=== PATIENT | female | born 1975 | race Caucasian/White ===

== ENCOUNTER 2019-02-13 06:33 | Emergency (ER) | payer BC ==
[2019-02-13 07:40] VITALS: TEMP 98.1; BMI 26.6
--- NOTE | 2019-02-13 08:00 | PDOC ---
*Physical Exam - Vital Signs Last Vital Signs Temp Pulse Resp BP Pulse Ox 98.1 F 61 16 179/93 H 100 02/13/19 07:35 02/13/19 07:35 02/13/19 07:35 02/13/19 07:35 02/13/19 07:35 - Physical Exam Comments: 02/13/19 08:00 The patient was examined by [CHAPITO Thompson] under my direct supervision. I personally evaluated the patient. I concur with the above findings and the plan of care. *DC/Admit/Observation/Transfer - Referrals Referrals: Zainab Shea MD [Primary Care Provider] - - Patient Instructions - Post Discharge Activity
[2019-02-13] MEDS ORDERED: ASPIRIN 81 MG CHEWABLE TABLETS PO ONE (08:01)
--- NOTE | 2019-02-13 08:06 | PDOC ---
History of Present Illness - General Chief Complaint: Chest Pain Stated Complaint: CHEST DISCCOMFORT Time Seen by Provider: 02/13/19 07:52 History Source: Patient Exam Limitations: Clinical Condition - History of Present Illness Initial Comments: 02/13/19 08:02 Patient with no significant past medical history present with complaint of three -day history of intermittent chest tightness which lasts for a few minutes and resolves. Patient reported feeling chest tightness and hour ago which has resolved. Denies nausea, vomiting, shortness of breath, tingling sensation or numbness sensation. Denies dizziness or palpitations. Denies any family history of heart attacks. Timing/Duration: other (3 days) Past History - Past Medical History Allergies/Adverse Reactions: Allergies Allergy/AdvReac Type Severity Reaction Status Date / Time No Known Allergies Allergy Verified 02/13/19 07:35 Home Medications: Ambulatory Orders Loratadine [Claritin] 10 mg PO DAILY 02/13/19 Asthma: No Cancer: No Cardiac Disorders: No COPD: No Diabetes: No HTN: No Seizures: No Thyroid Disease: No Other medical history: SEASONAL ALLERGIES - Immunization History Immunization Up to Date: Yes - Suicide/Smoking/Psychosocial Hx Smoking History: Never smoked Have you smoked in the past 12 months: No Hx Alcohol Use: No Drug/Substance Use Hx: No Hx Substance Use Treatment: No Review of Systems - Review of Systems Able to Perform ROS?: Yes Is the patient limited Greek proficient: No Constitutional: No: Night Sweats, Weakness HEENTM: No: Symptoms Reported, See HPI, Eye Pain, Blurred Vision, Tearing, Recent change in vision, Double Vision, Cataracts, Ear Pain, Ocular Prothesis, Ear Discharge, Nose Pain, Nose Congestion, Tinnitus, Nose Bleeding, Hearing Loss , Throat Pain, Throat Swelling, Mouth Pain, Dental Problems, Difficulty Swallowing, Mouth Swelling, Other Respiratory: No: Symptoms reported, See HPI, Cough, Orthopnea, Shortness of Breath, SOB with Exertion, SOB at Rest, Stridor, Wheezing, Productive cough, Hemoptysis, Other Cardiac (ROS): Yes: Symptoms Reported, See HPI, Chest Pain, Chest Tightness. No : Edema, Irregular Heart Rate, Lightheadedness, Palpitations, Syncope, Other ABD/GI: No: Nausea, Vomiting Neurological: No: Numbness, Paresthesia, Tingling, Dizziness All Other Systems: Reviewed and Negative *Physical Exam - Vital Signs Last Vital Signs Temp Pulse Resp BP Pulse Ox 98.1 F 61 16 179/93 H 100 02/13/19 07:35 02/13/19 07:35 02/13/19 07:35 02/13/19 07:35 02/13/19 07:35 - Physical Exam Comments: 02/13/19 08:05 GENERAL: Well developed, well nourished. Awake and alert. No acute distress. HEENT: Normocephalic, atraumatic. PERRLA, EOMI. No conjunctival pallor. Sclera are non-icteric. Moist mucous membranes. Oropharynx is clear. NECK: Supple. Full ROM. CARDIOVASCULAR: Regular rate and rhythm. No murmurs, rubs, or gallops. Distal pulses are 2+ and symmetric. PULMONARY: No evidence of respiratory distress. Lungs clear to auscultation bilaterally. No wheezing, rales or rhonchi. ABDOMINAL: Soft. Non-tender. Non-distended. No rebound or guarding. No organomegaly. Normoactive bowel sounds. MUSCULOSKELETAL Normal range of motion at all joints. SKIN: Warm and dry. Normal capillary refill. No rashes. No cyanosis. NEUROLOGICAL: Alert, awake, appropriate. Gait is normal without ataxia. PSYCHIATRIC: Cooperative. Good eye contact. Appropriate mood General Appearance: Yes: Nourished, Appropriately Dressed. No: Apparent Distress ED Treatment Course - LABORATORY CBC & Chemistry Diagram: 02/13/19 08:10 02/13/19 08:10 Medical Decision Making - Medical Decision Making 02/13/19 08:03 Patient with no significant past medical history present with complaint of three -day history of intermittent chest tightness which lasts for a few minutes and resolves. Patient reported feeling chest tightness and hour ago which has resolved. Denies nausea, vomiting, shortness of breath, tingling sensation or numbness sensation. Denies dizziness or palpitations. Denies any family history of heart attacks. Clinical exam unremarkable except elevated BPs with normal cardio exam and lungs clear to auscultation bilateral. Patient in no acute distress. EKG shows sinus bradycardia. Symptoms likely bronchospasm versus cardiogenic pain. CBC, CMP and cardiac profile labs ordered. Urine test ordered. Checks x-ray ordered to rule out acute chest pathology. Aspirin 162 mg by mouth given. Reassess after lab and imaging results. nitropast ordered due to elevated BPs 02/13/19 09:33 CBC, CMP cardiac profile neg. CXR unremarkable. Patient asymptomatic . Rpt trop 3 hrs from first labs. 02/13/19 11:51 RPT trop negative. Patient still asymptomatic. Patient stable for discharge *DC/Admit/Observation/Transfer Diagnosis at time of Disposition: Chest pain in adult - Discharge Dispostion Disposition: HOME Condition at time of disposition: Improved Decision to Admit order: No - Referrals Referrals: Zainab Shea MD [Primary Care Provider] - - Patient Instructions Printed Discharge Instructions: DI for Atypical Chest Pain Additional Instructions: Your labs and chest x-rays was negative as well as EKG. Take tylenol as needed for pain. Come back to ED if chest pain comes back - Post Discharge Activity Forms/Work/School Notes: Back to Work
[2019-02-13] MEDS ORDERED: ASPIRIN 81 MG CHEWABLE TABLETS ONE (08:09)
[2019-02-13] MEDS ORDERED: NITROGLYCERIN 2% OINTMENT - 1GM PACKET TD ONE ×2 (08:26→08:39)
[2019-02-13 08:28] LABS: BASO % 0.6 % (0-2.0); EOS % 9.8 % (0-4.5); HEMATOCRIT 42.6 % (32.4-45.2); HEMOGLOBIN 14.3 GM/dL (10.7-15.3); LYMPH % 27.3 % (8-40); MCH 31.7 pg (25.7-33.7); MCHC 33.6 g/dl (32.0-36.0); MEAN CELL VOLUME 94.2 fl (80-96); MEAN PLT VOLUME 7.8 fl (7.5-11.1); MONO % 6.4 % (3.8-10.2); NEUT % 55.9 % (42.8-82.8); PLATELET COUNT 330 K/MM3 (134-434); RBC 4.52 M/mm3 (3.60-5.2); RDW 13.6 % (11.6-15.6); WHITE BLOOD COUNT 9.9 K/mm3 (4.0-10.0)
[2019-02-13 09:02] LABS: ALBUMIN 3.7 g/dl (3.4-5.0); ALK PHOS 99 U/L (45-117); ANION GAP 6 MMOL/L (8-16); BILIRUBIN,TOTAL 0.4 mg/dL (0.2-1); BLOOD UREA NITROGEN 7 mg/dL (7-18); CALCIUM 8.6 mg/dL (8.5-10.1); CHLORIDE 107 mmol/L (98-107); CO2 27 mmol/L (21-32); CREATININE 0.6 mg/dL (0.55-1.3); GLUCOSE,RANDOM 87 mg/dL (74-106); POTASSIUM 3.7 mmol/L (3.5-5.1); SGOT/AST 15 U/L (15-37); SGPT/ALT 25 U/L (13-61); SODIUM 141 mmol/L (136-145); TOT PROT 7.4 g/dl (6.4-8.2)
[2019-02-13 10:51] VITALS: BP 153/84; PULSE 57
[2019-02-13] MEDS ORDERED: ACETAMINOPHEN 325 MG TABLET (FP) PO ONE (11:57)
[2019-02-13] MEDS ORDERED: ACETAMINOPHEN 325 MG TABLET (FP) ONE (11:59)
--- NOTE | 2019-02-14 13:09 | EKG ---
Test Reason : Blood Pressure : / mmHG Vent. Rate : 057 BPM Atrial Rate : 057 BPM P-R Int : 166 ms QRS Dur : 076 ms QT Int : 430 ms P-R-T Axes : 062 015 037 degrees QTc Int : 418 ms SINUS BRADYCARDIA WITH SINUS ARRHYTHMIA OTHERWISE NORMAL ECG NO PREVIOUS ECGS AVAILABLE Confirmed by ANA TANNER MD ([id number]) on 02/14/2019 1:09:33 PM Referred By: Confirmed By:ANA TANNER MD
== END 2019-02-13 12:11 | disposition home or self-care (01) ==
LOC: JER 06:33
DX: R07.89 Other chest pain (principal); J30.2 Other seasonal allergic rhinitis
CPT/HCPCS: 36415; 71046-TC-FY; 80053; 82550; 84484; 84703; 85025; 93005; 93010; 99282-25

== ENCOUNTER 2020-04-12 04:02 | Emergency (ER) | payer BC ==
[2020-04-12 04:14] VITALS: BP 152/86; PULSE 81; TEMP 98.3; BMI 25.7
--- NOTE | 2020-04-12 04:41 | PDOC ---
History of Present Illness - General Chief Complaint: Chest Pain Stated Complaint: CHEST PRESSURE/R HAND PAIN/SORE THROAT Time Seen by Provider: 04/12/20 04:14 History Source: Patient Exam Limitations: No Limitations - History of Present Illness Initial Comments: 04/12/20 04:35 HPI: 45yo F pmh HTN presenting with chest pressure since 3AM (<1hour). No pain, just whoel chest pressure described as consistent with her anxiety / prior episodes of hypertension. Mildly hypertensive now. Patient reports being anxious that she may have COVID-19 due to 1 day of sore throat when swallowing. Also endorses right hand numbness starting at the mid forearm radiating to the ring and small fingers. Denies edema, palpitations, SOB, chest pain, nausea, vomiting, fevers or chills. 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 All: NKDA Meds: Lisinopril PMH: HTN PSH: Denies Past History - Travel History Traveled outside of the country in the last 30 days: No Close contact w/someone who was outside of country & ill: No - Medical History Allergies/Adverse Reactions: Allergies Allergy/AdvReac Type Severity Reaction Status Date / Time No Known Allergies Allergy Verified 04/12/20 04:14 Home Medications: Ambulatory Orders Loratadine [Claritin] 10 mg PO DAILY 02/13/19 Asthma: No Cancer: No Cardiac Disorders: No COPD: No Diabetes: No HTN: No Seizures: No Thyroid Disease: No - Immunization History Immunization Up to Date: Yes - Psycho-Social/Smoking History Smoking History: Never smoked Have you smoked in the past 12 months: No Information on smoking cessation initiated: No - Substance Abuse Hx (Audit-C & DAST Scrn) How often the patient has a drink containing alcohol: Monthly or less Number of drinks the patient has on a typical day: 1 or 2 Score: In Men: 4 or > Positive; In Women: 3 or > Positive: 1 Screen Result (Pos requires Nsg. Audit-10AR): Negative In the last yr the pt used illegal drug/Rx for NonMed reason: No Score: Yes response is considered Positive: 0 Screen Result (Positive result requires Nsg. DAST-10): Negative Review of Systems - Review of Systems Able to Perform ROS?: Yes Is the patient limited Croatian proficient: Yes Constitutional: Yes: Chills, Fever. No: Weakness HEENTM: Yes: Throat Pain. No: Nose Pain, Nose Congestion Respiratory: No: Cough, Shortness of Breath, Wheezing Cardiac (ROS): Yes: Chest Tightness. No: Chest Pain, Edema, Irregular Heart Rate, Lightheadedness, Palpitations, Syncope ABD/GI: No: Constipated, Diarrhea, Nausea, Vomiting : No: Burning, Dysuria, Frequency Musculoskeletal: No: Muscle Pain, Muscle Weakness Integumentary: No: Pallor, Pruritus, Rash Neurological: No: Headache, Numbness, Tingling, Weakness Endocrine: No: Increased Thirst, Increased Urine Hematologic/Lymphatic: No: Anemia, Blood Clots, Easy Bleeding All Other Systems: Reviewed and Negative *Physical Exam - Vital Signs Last Vital Signs Temp Pulse Resp BP Pulse Ox 98.3 F 81 20 152/86 100 04/12/20 04:09 04/12/20 04:09 04/12/20 04:09 04/12/20 04:09 04/12/20 04:09 - Physical Exam 04/12/20 04:45 Vitals reviewed, AFVSS GEN: Well appearing, appears stated age, NAD, comfortable. AAOx3. HEENT: NCAT, EOMI, PERRL. Sclera anicteric, noninjected. No facial asymmetry. Moist mucous membranes. Normal voice. Trachea midline. CV: RRR, S1/S2, no murmurs / rubs / gallops appreciated. LUNG: CTABL, normal work of breathing. No wheezes, rales, rhonchi. No cough. Speaking full sentences. GI: Soft, NTND, +BS, no guarding, no rebound. No masses. EXTREMITIES: 2+ distal pulses. No clubbing / cyanosis / edema. No gross deformity in any extremity. SKIN: Warm, dry, no rashes appreciated, non-jaundiced. PSYCH: Normal mood and affect. Cooperative and appropriate. NEURO: CN grossly intact. Moving all extremities well. Normal strength and sensation grossly. ED Treatment Course - LABORATORY CBC & Chemistry Diagram: 04/12/20 04:42 04/12/20 04:42 Medical Decision Making - Medical Decision Making 04/12/20 04:41 45yo F pmh HTN presenting with acute chest pressure consistent with her anxiety in setting of sore throat and concern she may have COVID. Exam notable for afebrile, vitals stable, normal physical exam. - CBC, CMP, Cardiac Profile - EKG: Normal rate / rhythm / axis, no ischemic changes or concerning morphologies 04/12/20 05:54 - CXR unremarkable - Labs within normal limits - Patient feels better s/p rest in the department Dispo: Home Discharge - Discharge Information Problems reviewed: Yes Clinical Impression/Diagnosis: Chest pain in adult Condition: Stable Disposition: HOME - Admission No - Follow up/Referral - Patient Discharge Instructions Patient Printed Discharge Instructions: DI for Atypical Chest Pain Additional Instructions: You were seen and evaluated for chest pain. You workup was negative for emergent causes. Your potassium was low. Follow up with your primary care doctor to have it re- checked. Continue your home prescriptions as directed. Follow up with your primary care doctor in the next week for continued care. Return to the ED for any new or concerning symptoms. - Post Discharge Activity
[2020-04-12 04:51] LABS: BASO % 0.4 % (0-2.0); EOS % 14.2 % (0-4.5); HEMATOCRIT 38.2 % (32.4-45.2); MCH 32.9 pg (25.7-33.7); MCHC 34.2 g/dl (32.0-36.0); MEAN CELL VOLUME 96.2 fl (80-96); MONO % 5.8 % (3.8-10.2); NEUT % 39.6 % (42.8-82.8); PLATELET COUNT 311 K/MM3 (134-434); RBC 3.96 M/mm3 (3.60-5.2); RDW 13.5 % (11.6-15.6); WHITE BLOOD COUNT 9.4 K/mm3 (4.0-10.0)
--- NOTE | 2020-04-12 05:12 | PDOC ---
Attending Attestation - Resident Resident Name: Alexandro Mcnamara - ED Attending Attestation I have performed the following: I have examined & evaluated the patient, The case was reviewed & discussed with the resident, I agree w/resident's findings & plan - HPI HPI: 04/12/20 05:58 Pt is under stress she [place] [employer] [place] [employer] [place] [employer] [facility] [place] [employer] [place] to work, as she is afraid to go on public transportation, given the covid 19 States that her right forearm felt numb and she had some chest tightness and she wanted to be checked out for her CP and to r/o COVID. Pt has no fever and no cough - Physicial Exam PE: 04/12/20 05:59 Normal exam Agree with resident exam - Medical Decision Making 04/12/20 05:12 CBC is normal 04/12/20 05:59 EKG NSR COMP and card enzymes normal 04/12/20 06:00 CXR normal; lng [place] clear Pt is stable for d/c home Discharge - Discharge Information Problems reviewed: Yes Clinical Impression/Diagnosis: Chest pain in adult Condition: Stable Disposition: HOME - Follow up/Referral - Patient Discharge Instructions Patient Printed Discharge Instructions: DI for Atypical Chest Pain Additional Instructions: You were seen and evaluated for chest pain. You workup was negative for emergent causes. Your potassium was low. Follow up with your primary care doctor to have it re- checked. Continue your home prescriptions as directed. Follow up with your primary care doctor in the next week for continued care. Return to the ED for any new or concerning symptoms. - Post Discharge Activity
[2020-04-12 05:43] LABS: ALBUMIN 3.3 g/dl (3.4-5.0); ALK PHOS 77 U/L (45-117); ANION GAP 8 MMOL/L (8-16); BILIRUBIN,TOTAL 0.2 mg/dL (0.2-1); BLOOD UREA NITROGEN 10.8 mg/dL (7-18); CALCIUM 8.4 mg/dL (8.5-10.1); CHLORIDE 106 mmol/L (98-107); CO2 26 mmol/L (21-32); CREATININE 0.6 mg/dL (0.55-1.3); GLUCOSE,RANDOM 108 mg/dL (74-106); POTASSIUM 3.3 mmol/L (3.5-5.1); SGOT/AST 22 U/L (15-37); SGPT/ALT 27 U/L (13-61); SODIUM 140 mmol/L (136-145); TOT PROT 6.7 g/dl (6.4-8.2)
[2020-04-12] MEDS ORDERED: POTASSIUM CHLORIDE TABS 20 MEQ TABLET.ER (FP) PO ONE ×2 (05:54→05:57)
--- NOTE | 2020-04-13 09:17 | EKG ---
Test Reason : Blood Pressure : / mmHG Vent. Rate : 067 BPM Atrial Rate : 067 BPM P-R Int : 184 ms QRS Dur : 076 ms QT Int : 410 ms P-R-T Axes : 066 031 052 degrees QTc Int : 433 ms NORMAL SINUS RHYTHM NORMAL ECG WHEN COMPARED WITH ECG OF 13-FEB-2019 07:34, NO SIGNIFICANT CHANGE WAS FOUND Confirmed by Orion Cummings ([id number]) on 04/13/2020 9:16:39 AM Referred By: Confirmed By:Orion Cummings
== END 2020-04-12 06:22 | disposition home or self-care (01) ==
LOC: JER 04:02
DX: R07.9 Chest pain, unspecified (principal)
CPT/HCPCS: 36415; 71046-TC-FY; 80053; 82550; 84484; 85025; 93005; 93010; 99285-25

== ENCOUNTER 2021-12-10 05:28 | Emergency (ER) | payer BC ==
[2021-12-10 06:21] VITALS: BP 116/75; PULSE 67; TEMP 98; BMI 25.0
[2021-12-10] MEDS ORDERED: diphenhydrAMINE HCL 25 MG CAPSULE (FP) PO ONE ×4 (08:54→10:21)
== END 2021-12-10 11:11 | disposition home or self-care (01) ==
LOC: JER 05:28
DX: T78.40XA Allergy, unspecified, initial encounter (principal)
CPT/HCPCS: 99283-25